=== PATIENT | male | born 1955 | race Caucasian/White ===

== ENCOUNTER 2023-01-06 05:37 | Inpatient (IN) | payer OTHER, BC ==
--- OUTSIDE RECORDS SUMMARY | 2023-01-06 05:41 | XMS REPORT | Continuity of Care Document ---
:1955 Author Organization [facility] t Address [address] [place] [address] Care Team Providers Name Role Phone Dimitri Boston MD Primary Care Physician Elisa Dorado Attending Clinician Unavailable PEGGY GUZMÁN Attending Clinician Unavailable Payers Payer Name Policy Type Policy Number Effective Date Expiration Date S tr Blue Cross Blue 6 [id number] 2019 [facility] Shield of [place] 00:00:00 [facility] MEDICARE MB [id number] [facility] Spirit NOVITAS [facility] Blue Cross Blue C1 [id number] [facility] Shield of [facility] Problems Condition Condition Condition Status Onset Resolution Last Treating Co mments Source Name Details Category Date Date Treatment Clinician Date [id number] Lactose Problem Commo n intoleranc Spirit e [facility] Hyperlipid Hyperlipid Problem C ommon emia emia Spirit [facility] Essential Essential Problem Com mon hypertensi hypertensi Sp thanh on on [facility] Seasonal Chronic Problem Common allergic seasonal [facility] rhinitis allergic - [facility] rhinitis [facility] Hiatal Hiatal Problem Common hernia hernia [facility] Gastro-eso Gastro-eso Problem C ommon phageal phageal Spirit reflux reflux - [facility] Hypothyroi Hypothyroi Problem C ommon dism dism [facility] [id number] Screening Problem Com mon for [facility] Allergies, Adverse Reactions, Alerts Allergy Allergy Status Severity Reaction(s) Onset Inactive Treating Comm ents Source Name Type Date Date Clinician Penicill Propensi Active Hives Method i in G ty to 11-09 st adverse 00:00: Hospita reaction 00 l s to drug penicill penicill Active hives Common in G in [facility] Family History Family Member Diagnosis Comments Start Date Stop Date Source Natural sister Diabetes [facility] Social History Social Habit Start Date Stop Date Quantity Comments Source Gender identity 2019-11-10 Identifies as male [facility] 09:53:09 gender (finding) Hospital Sexual orientation 2019-11-10 Heterosexual Meth odist 09:53:09 (finding) Hospital History of Tobacco Common [facility] - Use [facility] Sex Assigned At Common Sp thanh - [facility] Tobacco use and 2019-11-10 2019-11-10 Smokeless tobacco [facility] exposure 00:00:00 00:00:00 non-user Hospital Alcohol intake 2019-11-10 2019-11-10 Current drinker of [facility] 00:00:00 00:00:00 alcohol (finding) Hospita l History of Social 2019-11-10 2019-11-[address] function 00:00:00 00:00:[address] [facility] Tobacco Comment 2019-11-10 2019-11-10 smoked one cigar in [facility] 00:00:00 00:00:[address] [place] [address] Smoking Status Start Date Stop Date Source Never Smoker [facility] Medications Ordered Filled Start Stop Current Ordering Indication Dosage Frequency Signature Comments Components Source Medication Medication Date Date Medication? Clinician (SIG) Name Name losartan 2019- Yes [facility] (COZAAR) 25 7-21 st MG tablet 14:18: Hospita 04 l amLODIPine Yes 2.5mg QD Take 2.5 Me [facility] (NORVASC) 7-[address] 2.5 mg 00:00: mouth Hospita tablet 00 daily. l levothyroxi 2019-0 Yes 25ug QD Take 25 Met hodi ne 7-[address] (SYNTHROID) 00:00: mouth Hospi ta 25 mcg 00 daily. l tablet simvastatin 2020-0 Yes 20mg Take 20 mg [facility] (ZOCOR) 20 6-[address] mg tablet 00:00: Hospita 00 l hydroCHLORO 2020-0 Yes 12.5mg Q7D Take 12.5 [facility] thiazide 6-[address] (MICROZIDE) 00:00: mouth once Hospita 12.5 mg 00 a week. l capsule esomeprazol 2012-0 Yes Method i e magnesium 2-13 st 20 mg 00:00: Hospita tablet,ann marie 00 l yed release (DR/EC) Simvastatin Simvastatin No Simvastati 10 MG 10 MG n 10 MG Pantoprazol Pantoprazol No 1{table QD Pantoprazo e Sodium 40 e Sodium 40 t} le Sodium MG MG 40 MG Pearls IC - Pearls IC - No Pearls IC - Fluticasone Fluticasone No 2{spray QD Fluticason Propionate Propionate _in_eac e 50 MCG/ACT 50 MCG/ACT h_nostr Propionate il} 50 MCG/ACT One A Day One A Day No One A Day Mens Mens Mens Vita[facility]ves VitaCraves VitaCraves - - - Potassium Potassium No Potassium Chloride Chloride Chloride Jeannine ER 20 Jeannine ER 20 Jeannine ER 20 MEQ MEQ MEQ amLODIPine amLODIPine No amLODIPine Besylate Besylate Besylate 2.5 MG 2.5 MG 2.5 MG Levothyroxi Levothyroxi No QD Levothyrox ne Sodium ne Sodium ine Sodium 50 MCG 50 MCG 50 MCG hydroCHLORO hydroCHLORO No hydroCHLOR thiazide thiazide Othiazide 12.5 MG 12.5 MG 12.5 MG Losartan Losartan No 1{table QD Losartan Potassium Potassium t} Potassium 25 MG 25 MG 25 MG One A Day One A Day No One A Day Mens Mens Mens Vita[employer] VitaCraves VitaCraves - - - amLODIPine amLODIPine No amLODIPine Besylate Besylate Besylate 2.5 MG 2.5 MG 2.5 MG Losartan Losartan No 1{table QD Losartan Potassium Potassium t} Potassium 25 MG 25 MG 25 MG Potassium Potassium No Potassium Chloride Chloride Chloride Jeannine ER 20 Jeannine ER 20 Jeannine ER 20 MEQ MEQ MEQ hydroCHLORO hydroCHLORO No hydroCHLOR thiazide thiazide Othiazide 12.5 MG 12.5 MG 12.5 MG Fluticasone Fluticasone No 2{spray QD Fluticason Propionate Propionate _in_eac e 50 MCG/ACT 50 MCG/ACT h_nostr Propionate il} 50 MCG/ACT Levothyroxi Levothyroxi No QD Levothyrox ne Sodium ne Sodium ine Sodium 25 MCG 25 MCG 25 MCG Esomeprazol Esomeprazol No 1{capsu QD Esomeprazo e Magnesium e Magnesium le} le 20 MG 20 MG Magnesium 20 MG Simvastatin Simvastatin No Simvastati 10 MG 10 MG n 10 MG Losartan Losartan No 1{table QD Losartan Potassium Potassium t} Potassium 25 MG 25 MG 25 MG Pantoprazol Pantoprazol No 1{table QD Pantoprazo e Sodium 40 e Sodium 40 t} le Sodium MG MG 40 MG Esomeprazol Esomeprazol No 1{capsu QD Esomeprazo e Magnesium e Magnesium le} le 20 MG 20 MG Magnesium 20 MG Pearls IC - Pearls IC - No Pearls IC - hydroCHLORO hydroCHLORO No hydroCHLOR thiazide thiazide Othiazide 12.5 MG 12.5 MG 12.5 MG amLODIPine amLODIPine No amLODIPine Besylate Besylate Besylate 2.5 MG 2.5 MG 2.5 MG Simvastatin Simvastatin No Simvastati 10 MG 10 MG n 10 MG Levothyroxi Levothyroxi No QD Levothyrox ne Sodium ne Sodium ine Sodium 25 MCG 25 MCG 25 MCG Fluticasone Fluticasone No 2{spray QD Fluticason Propionate Propionate _in_eac e 50 MCG/ACT 50 MCG/ACT h_nostr Propionate il} 50 MCG/ACT One A Day One A Day No One A Day Mens Mens Mens VitaCraves VitaCraves VitaCraves - - - Potassium Potassium No Potassium Chloride Chloride Chloride Jeannine ER 20 Jeannine ER 20 Jeannine ER 20 MEQ MEQ MEQ Losartan Losartan No 1{table QD Losartan Potassium Potassium t} Potassium 25 MG 25 MG 25 MG Pantoprazol Pantoprazol No 1{table QD Pantoprazo e Sodium 40 e Sodium 40 t} le Sodium MG MG 40 MG Esomeprazol Esomeprazol No 1{capsu QD Esomeprazo e Magnesium e Magnesium le} le 20 MG 20 MG Magnesium 20 MG Pearls IC - Pearls IC - No Pearls IC - hydroCHLORO hydroCHLORO No hydroCHLOR thiazide thiazide Othiazide 12.5 MG 12.5 MG 12.5 MG amLODIPine amLODIPine No amLODIPine Besylate Besylate Besylate 2.5 MG 2.5 MG 2.5 MG Simvastatin Simvastatin No Simvastati 10 MG 10 MG n 10 MG Levothyroxi Levothyroxi No QD Levothyrox ne Sodium ne Sodium ine Sodium 25 MCG 25 MCG 25 MCG Fluticasone Fluticasone No 2{spray QD Fluticason Propionate Propionate _in_eac e 50 MCG/ACT 50 MCG/ACT h_nostr Propionate il} 50 MCG/ACT One A Day One A Day No One A Day Mens Mens Mens VitaCraves VitaCraves VitaCraves - - - Potassium Potassium No Potassium Chloride Chloride Chloride Jeannine ER 20 Jeannine ER 20 Jeannine ER 20 MEQ MEQ MEQ Simvastatin Simvastatin No Simvastati 10 MG 10 MG n 10 MG Pantoprazol Pantoprazol No 1{table QD Pantoprazo e Sodium 40 e Sodium 40 t} le Sodium MG MG 40 MG Pearls IC - Pearls IC - No Pearls IC - Fluticasone Fluticasone No 2{spray QD Fluticason Propionate Propionate _in_eac e 50 MCG/ACT 50 MCG/ACT h_nostr Propionate il} 50 MCG/ACT One A Day One A Day No One A Day Mens Mens Mens VitaCraves VitaCraves VitaCraves - - - Potassium Potassium No Potassium Chloride Chloride Chloride Jeannine ER 20 Jeannine ER 20 Jeannine ER 20 MEQ MEQ MEQ amLODIPine amLODIPine No amLODIPine Besylate Besylate Besylate 2.5 MG 2.5 MG 2.5 MG Levothyroxi Levothyroxi No QD Levothyrox ne Sodium ne Sodium ine Sodium 50 MCG 50 MCG 50 MCG hydroCHLORO hydroCHLORO No hydroCHLOR thiazide thiazide Othiazide 12.5 MG 12.5 MG 12.5 MG Losartan Losartan No 1{table QD Losartan Potassium Potassium t} Potassium 25 MG 25 MG 25 MG Immunizations Ordered Immunization Filled Immunization Date Status Commen ts Source Name Name Pfizer COVID-19 Pfizer COVID-19 2020-06-17 Completed [facility] Vaccine Vaccine 13:55:00 - [facility] Pfizer COVID-19 Pfizer COVID-19 2020-06-17 Completed [facility] Vaccine Vaccine 13:55:00 - [facility] Pfizer COVID-19 Pfizer COVID-19 2020-06-17 Completed [facility] Vaccine Vaccine 13:55:00 - [facility] Pfizer COVID-19 Pfizer COVID-19 2020-06-17 Completed [facility] Vaccine Vaccine 13:55:00 - [facility] Pfizer COVID-19 Pfizer COVID-19 2020-06-17 Completed [facility] Vaccine Vaccine 13:55:00 - [facility] Pfizer COVID-19 Pfizer COVID-19 2020-05-21 Completed [facility] Vaccine Vaccine 13:55:00 [facility] Pfizer COVID-19 Pfizer COVID-19 2020-05-21 Completed [facility] Vaccine Vaccine 13:55:00 - [facility] Pfizer COVID-19 Pfizer COVID-19 2020-05-21 Completed [facility] Vaccine Vaccine 13:55:00 - [facility] Pfizer COVID-19 Pfizer COVID-19 2020-05-21 Completed [facility] Vaccine Vaccine 13:55:00 - [facility] Pfizer COVID-19 Pfizer COVID-19 2020-05-21 Completed [facility] Vaccine Vaccine 13:55:00 [facility] Vital Signs Vital Name Observation Time Observation Value Comments Source blood pressure 2021-11-23 13:20:00 139 mm[Hg] Common [facility] - systolic [facility] blood pressure 2021-11-23 13:20:00 75 mm[Hg] Common [facility] - diastolic [facility] height 2021-11-23 13:20:00 68.5 [in_i] [facility] weight 2021-11-23 13:20:00 211.6 [lb_av] Common [facility] temperature 2021-11-23 13:20:00 97.0 [degF] [facility] bmi 2021-11-23 13:20:00 31.7 kg/m2 [facility] oximetry 2021-11-23 13:20:00 98 % [facility] respiratory rate 2021-11-23 13:20:00 16 /min Comm on [facility] height 2021-10-27 13:00:00 68.5 [in_i] [facility] weight 2021-10-27 13:00:00 201.0 [lb_av] Common [facility] temperature 2021-10-27 13:00:00 98.6 [degF] [facility] bmi 2021-10-27 13:00:00 30.11 kg/m2 [facility] Procedures This patient has no known procedures. Plan of Care Planned Activity Planned Date Details Comments Source Future Scheduled 2023-01-06 Screening for [facility] Test 05:40:37 malignant neoplasm of colon (procedure) [code = 384678896] Future Scheduled 2023-01-06 Screening for [facility] Test 05:40:37 malignant neoplasm of colon (procedure) [code = 632962103] Future Scheduled 2023-01-06 Screening for [facility] Test 05:40:37 malignant neoplasm of colon (procedure) [code = 637091050] Future Scheduled 2023-01-06 COVID-19 VACCINE (#1) [facility] Test 05:40:37 [code = COVID-19 VACCINE (#1)] Future Scheduled 2023-01-06 Screening for [facility] Test 05:40:37 malignant neoplasm of colon (procedure) [code = 196733877] Future Scheduled 2023-01-06 Screening for [facility] Test 05:40:37 malignant neoplasm of colon (procedure) [code = 372817026] Future Scheduled 2023-01-06 SHINGLES VACCINES (1 [facility] Test 05:40:37 of 2) [code = SHINGLES VACCINES (1 of 2)] Future Scheduled 2023-01-06 65+ [facility]OCOCCAL [facility] Test 05:40:37 VACCINE (1 - PCV) [code = 65+ PNEUMOCOCCAL VACCINE (1 - PCV)] Future Scheduled 2023-01-06 INFLUENZA VACCINE (#1) [facility] Test 05:40:37 [code = INFLUENZA VACCINE (#1)] Encounters Start End Encounter Admission Attending Care Care Encounter Source Date/Time Date/Time Type Type Clinicians Facility Department ID 2022-06-04 Outpatient [place], [facility] [id number] Common 13:26:01 Elisa [id number] [facility] 2021-11-21 Outpatient [place], STLMLC STLMLC [id number] Common 11:21:00 Elisa [id number] [facility] 2021-05-[address], STLMLC STLMLC [id number] Common 13:47:36 Elisa [id number] [facility] 2021-05-[address], STLMLC STLMLC [id number] Common 13:10:31 Elisa [id number] [facility] 2022-02-22 2022-02-22 (TEL) STLMLC STLMLC [id number] Co mmon 00:00:00 00:00:00 [facility] 2021-11-23 2021-11-23 OFFICE STLMLC STLMLC [id number] Co mmon 00:00:00 00:00:00 VISIT [facility] PT - CHI LEVEL 4 [facility] 2021-10-27 2021-10-27 (TEL) STLMLC STLMLC [id number] Co mmon 00:00:00 00:00:00 [facility] 2021-10-27 2021-10-27 SUB ANNUAL STLMLC STLMLC [id number] Common 00:00:00 00:00:00 MCR [facility] VISIT [facility] 2020-11-23 2020-11-23 OFFICE STLMLC STLMLC [id number] Co mmon 00:00:00 00:00:00 VISIT [facility] PT - CHI LEVEL 1 [facility] 2020-10-19 2020-10-19 Outpatient STLMLC STLMLC [id number] Common 00:00:00 00:00:00 [facility] 2020-10-19 2020-10-19 Outpatient STLMLC STLMLC [id number] Common 00:00:00 00:00:00 [facility] 2020-10-14 2020-10-14 Outpatient STLMLC STLMLC [id number] Common 00:00:00 00:00:00 [facility] 2020-09-22 2020-09-22 Outpatient STLMLC STLMLC [id number] Common 00:00:00 00:00:00 [facility] 2019-11-10 2019-11-10 Outpatient ARIELLE [facility] [id number] [address] [place] 00:00:00 00:00:00 PEGGY [address] 2019-11-10 2019-11-10 [facility] [id number] [address] [place] 00:00:00 00:00:00 PEGGY [address] Results Test Description Test Time Test Comments Results Result Comments Source HEMOGLOBIN A1C 2020-11-23 00:00:00 Test Item Value Reference Range Interpretation Comme nts A1C (test code = 4548-4) 5.6%
[2023-01-06 06:12] LABS: Absolute Lymphocytes (CBC) 1.3 K/uL (0.7-4.9); Hematocrit 45.2 % (39.6-49.0); Lymphocytes % 9.2 % (15.3-44.8); MCV 93.2 fL (80-100); MPV 7.1 fL (7.6-11.3); Platelets 263 thou/uL (152-406); RBC Red Blood Cell Count 4.85 M/uL (4.33-5.43)
[2023-01-06] MEDS ORDERED: MORPHINE 4 MG/ML SYR ONE (06:18)
[2023-01-06] MEDS ORDERED: ONDANSETRON 4 MG/2 ML VIAL ONE (06:18)
[2023-01-06] MEDS ORDERED: KETOROLAC 30 MG/ML INJ ONE (06:18)
[2023-01-06] MEDS ORDERED: NA CHLORIDE 0.9% 1,000 ML ONE (06:18)
[2023-01-06 06:23] LABS: Specific Gravity 1.026 (1.005-1.030); Urine Bacteria None Seen /HPF (<20); Urine Bilirubin NEGATIVE (Negative); Urine Blood Negative (Negative); Urine Clarity Clear (Clear); Urine Color Yellow (Yellow); Urine Glucose NEGATIVE (Negative); Urine Mucus 1+ /HPF (None Seen); Urine Protein TRACE (Negative); Urine RBC <5 /HPF (None Seen); Urine Urobilinogen Normal (Normal)
[2023-01-06 06:31] LABS: Bilirubin Total 1.2 mg/dL (0.2-1.0); Protein, Total 7.7 g/dL (6.4-8.2)
[2023-01-06] MEDS ORDERED: METRONIDAZOLE 500mg IVPB 500 MG/100 ML BAG IV ONE (07:29)
[2023-01-06] MEDS ORDERED: CEFTRIAXONE 1000 MG/VIAL ONE (07:29)
--- NOTE | 2023-01-06 07:51 | RAD REPORT ---
EXAM DESCRIPTION: CT - Head Brain Wo Cont - 01/06/2023 6:59 am CLINICAL HISTORY: acute syncope COMPARISON: Iac W And Wo Cont dated 12/20/2021 TECHNIQUE: Noncontrast head CT images were obtained without IV contrast. Multiplanar reformats were generated and reviewed. All CT scans are performed using dose optimization technique as appropriate and may include automated exposure control or mA/KV adjustment according to patient size. FINDINGS: No intracranial hemorrhage, mass, or edema. Midline structures are unremarkable. Normal ventricular caliber for age. Mera-white matter differentiation is preserved, without evidence of acute infarct. No abnormal extra- axial fluid collections. Mild periventricular deep white matter hypodensities, nonspecific, may suggest sequelae of chronic sm all vessel ischemic changes. Mastoid air cells on the left show confluent sclerosis, could relate to sequelae of prior infection. Visualized portions of the paranasal sinuses are clear. No acute bony findings. IMPRESSION: No evidence of an acute intracranial process. Mild nonspecific deep white matter hypoden sities, may suggest chronic small vessel ischemic changes.
--- NOTE | 2023-01-06 08:06 | RAD REPORT ---
EXAM DESCRIPTION: CT - Chest Abdomen Pelvis W Cont - 01/06/2023 6:59 am CLINICAL HISTORY: ABDOMINAL DISTENTION COMPARISON: No comparisons TECHNIQUE: Thin axial CT images of the chest, abdomen, and pelvis, obtained following intravenous ad ministration of 95 mL Isovue-300. Multiplanar reformats were generated and reviewed. All CT scans are performed using dose optimization technique as appropriate and may include automated exposure control or mA/KV adjustment according to patient size. FINDINGS: The lungs are clear.No pleural or pericardial effusion.No intrathoracic adenopathy. The liver, spleen, pancreas, adrenal glands and kidneys are within normal limits. Focal wall thickening along the mid sigmoid colon. Wall thickening is more pronounced along the infer ior wall of the colon, as best appreciated on image 53 series 303, without hypodense component, findi ng may relate to a developing intramural phlegmon. Fat stranding extends caudally into the pericystic space. No suspicious fluid collections elsewhere. There is thickening of the wall in the dome of the bladder. No bowel obstruction, free air, free fluid or abscess. Status post appendicectomy. No path ologic lymphadenopathy in the abdomen or pelvis. No worrisome osseous finding. IMPRESSION: Acute sigmoid diverticulitis. Possible developing inferior wall intramural phlegmon. Sympathetic inflammatory wall thickening along the dome of the bladder. The findings were communicated to Dr. Martinez on 01/06/2023 at 07:59 hours.
--- NOTE | 2023-01-06 08:08 | ER ---
Nurse's Notes [facility] Name: Todd Kim Age: 67 yrs Sex: Male : 1955 Arrival Date: 01/06/2023 Time: 05:37 Bed 5 Private MD: Diagnosis: Diverticulitis of large intestine without perforation or abscess without bleeding;Sigmoid colon diverticulitis with developing phlegmon intramural location of sigmoid colon Presentation: 01/06 05:45 Chief complaint: Patient states: LLQ cramping pain of 8,onset Saturday with syncopal pf1 episode, left pelvic pain upon urination with nausea,onset Saturday and SOB this AM. Patient stated when having the syncopal episode yesterday was while sitting at the kitchen table, then found himself later on the kitchen floor when he woke up. 05:45 Coronavirus screen: Vaccine status: Patient reports receiving the 2nd dose of the covid pf1 vaccine. 3 doses of pfizer Client denies travel out of the [place] in the last 14 days. At this time, the client does not indicate any symptoms associated with coronavirus-19. Ebola Screen: Patient negative for fever greater than or equal to 101.5 degrees Fahrenheit, and additional compatible Ebola Virus Disease symptoms. Initial Sepsis Screen: Does the patient meet any 2 criteria? HR > 90 bpm. No. Patient's initial sepsis screen is negative. Does the patient have a suspected source of infection? No. Patient's initial sepsis screen is negative. Risk Assessment: Do you want to hurt yourself or someone else? Patient reports no desire to harm self or others. 05:45 Method Of Arrival: Ambulatory pf1 05:45 Acuity: JOE 3 pf1 06:23 Onset of symptoms was January 05, 2023. jw7 Triage Assessment: 06:21 General: Appears in no apparent distress. uncomfortable, Behavior is calm, cooperative. jw7 Pain: Complains of pain in left femoral area Pain does not radiate. Pain currently is 8 out of 10 on a pain scale. Quality of pain is described as pressure, Pain began 1 day ago. Is intermittent. EENT: No deficits noted. No signs and/or symptoms were reported regarding the EENT system. Neuro: No deficits noted. [place] Agitation-Sedation Scale (RASS): 0 - Alert and Calm. Cardiovascular: Reports nausea, shortness of breath, syncope, Capillary refill < 3 seconds Clubbing of nail beds is absent JVD is absent Patient's skin is warm and dry. Respiratory: Reports shortness of breath on exertion Airway is patent Trachea midline Respiratory effort is even, unlabored, Respiratory pattern is regular, symmetrical. GI: No deficits noted. No signs and/or symptoms were reported involving the gastrointestinal system. : No deficits noted. No signs and/or symptoms were reported regarding the genitourinary system. Derm: No deficits noted. No signs and/or symptoms reported regarding the dermatologic system. Musculoskeletal: No deficits noted. No signs and/or symptoms reported regarding the musculoskeletal system. Circulation, motion, and sensation intact. Range of motion: intact in all extremities. Historical: - Allergies: 06:13 PENICILLINS; pf1 - PMHx: 06:13 Hypertensive disorder; Diverticulitis; Hypothyroidism; hiatal hernia; pf1 - PSHx: 06:13 Appendectomy; pf1 - Immunization history:: Adult Immunizations up to date, Last tetanus immunization: < 10 years ago Flu vaccine is up to date. - Social history:: Smoking status: Patient denies any tobacco usage or history of. Patient uses alcohol, on a daily basis. Patient/guardian denies using street drugs. - Family history:: not pertinent. Screenin:19 [facility] ED Fall Risk Assessment (Adult) History of falling in the last 3 months, jw7 including since admission Yes- physiologic fall (2 pts) Confusion or Disorientation No (0 pts) Intoxicated or Sedated No (0 pts) Impaired Gait No (0 pts) Mobility Assist Device Used No (0 pt) Altered Elimination No (0 pt) Score/Fall Risk Level 0 - 2 = Low Risk Oriented to surroundings, Maintained a safe environment. Abuse screen: Denies threats or abuse. Denies injuries from another. Nutritional screening: No deficits noted. Tuberculosis screening: No symptoms or risk factors identified. Assessment: 07:56 General: Appears in no apparent distress. comfortable, Behavior is calm, cooperative, ko1 appropriate for age. Pain: Complains of pain in left femoral area and pelvis. Neuro: No deficits noted. Cardiovascular: No deficits noted. Respiratory: No deficits noted. GI: Reports lower abdominal pain, nausea. : No deficits noted. EENT: No deficits noted. Derm: No deficits noted. Musculoskeletal: No deficits noted. Vital Signs: 05:45 BP 159 / 98; Pulse 98; Resp 18; Temp 98.6; Pulse Ox 99% ; Weight 95.25 kg; Height 5 ft. pf1 9 in. ; Pain 8/10; 06:15 BP 128 / 75 LA Sitting (auto/reg); Pulse 84 MON; Resp 17 S; Pulse Ox 99% on R/A; jw7 07:25 BP 136 / 82; Pulse 78; Resp 16; Pulse Ox 100% ; ko1 07:59 BP 126 / 79; Pulse 80; Resp 16; Pulse Ox 99% ; ko1 05:45 Body Mass Index 31.01 (95.25 kg, 175.26 cm) pf1 05:45 Pain Scale: Adult pf1 [place] Coma Score: 06:52 Eye Response: spontaneous(4). Motor Response: obeys commands(6). Verbal Response: sp4 oriented(5). Total: 15. NIH Stroke Scale Scores: 06:52 NIHSS Score: 0 sp4 ED Course: 05:42 Patient arrived in ED. kj1 05:58 Kyle Martinez MD is Attending Physician. sp4 06:01 Raven Campos, RN is Primary Nurse. jw7 06:01 Inserted saline lock: 20 gauge in right antecubital area, using aseptic technique. jw7 Blood collected. 06:13 Triage completed. pf1 06:19 CBC with Diff Sent. jw7 06:19 CMP Sent. jw7 06:19 Lipase Sent. jw7 06:19 Urinalysis w/ reflexes Sent. jw7 06:19 Patient has correct armband on for positive identification. Bed in low position. Call jw7 light in reach. 06:23 Arm band placed on. jw7 06:41 EKG done, by ED staff, reviewed by Kyle Martinez MD. jw7 07:01 CT Chest, Abdomen, Pelvis - W/Contrast In Process Unspecified. EDMS 07:01 CT Head Brain wo Cont In Process Unspecified. EDMS 07:56 No provider procedures requiring assistance completed. ko1 07:56 Provided Education on: na. ko1 08:07 Lucio Strong MD is Hospitalizing Provider. sp4 11:17 Patient admitted, IV remains in place. ko1 Administered Medications: 06:19 Drug: NS 0.9% IV 1000 ml Route: IV; Rate: 1 bolus; Site: right antecubital; jw7 06:19 Drug: TORadol - Ketorolac IVP 15 mg Route: IVP; Site: right antecubital; jw7 06:19 Drug: Ondansetron IVP 4 mg Route: IVP; Site: right antecubital; jw7 06:19 Drug: morphine IVP or IV 4 mg Route: IVP; Infused Over: 4 mins; Site: right antecubital;jw7 07:22 Drug: Rocephin - Rocephin (cefTRIAXone) IVPB 1 grams Route: IVPB; Infused Over: 30 ko1 mins; Site: right antecubital; 07:25 Drug: metroNIDAZOLE IVPB 500 mg Volume: 100 ml; Route: IVPB; Rate: 200 ml/hr; Infused ko1 Over: 30 mins; Site: right antecubital; 08:10 Drug: D5-1/2 NS IV 1000 ml Route: IV; Rate: 125 ml/hr; Site: right antecubital; ko1 Medication: 07:56 VIS not applicable for this client. ko1 Outcome: 08:07 Decision to Hospitalize by Provider. sp4 11:17 Admitted to Tele via wheelchair, room 219, with chart, Report called to MICHELINE Washburn ko1 11:17 Condition: stable 11:17 Instructed on the need for admit. 11:40 Patient left the ED. ko1 NIH Stroke Scale - NIH Stroke Score Date: 01/06/2023 Time: 06:52 Total Score = 0 10. Dysarthria (speech clarity - read or repeat words) - 0(Normal) 11. Extinction and Inattention (visual/tactile/auditory/spatial/personal) - 0(No abnormality) 1a. Level of Consciousness (LOC) - 0(Alert) 1b. Level of Consciousness (LOC) (Month \T\ Age) - 0(Both) 1c. LOC Commands (Open \T\ Closes Eyes/Funeral Limousine Driver) - 0(Both) 2. Best Gaze (Lateral Gaze Paresis) - 0(Normal) 3. Visual Field Loss - 0(No visual loss) 4. Facial Palsy - 0(Normal) 5a. Left Arm: Motor (10-second hold) - 0(No drift) 5b. Right Arm: Motor (10-second hold) - 0(No drift) 6a. Left Leg: Motor (5-second hold - always test supine) - 0(No drift) 6b. Right Leg: Motor (5-second hold - always test supine) - 0(No drift) 7. Limb Ataxia (finger/nose \T\ heel/howard - test with eyes open) - 0(Absent) 8. Sensory Loss (pinprick arms/legs/face) - 0(Normal) 9. Best Language: Aphasia (description/naming/reading) - 0(No aphasia) Initials: sp4 Signatures: Dispatcher [employer] EDMS Andreia Virk kj1 Raven Campos RN RN jw7 Joselyn Burgess, MICHELINE RN ko1 Meera Rivers RN RN pf1 Kyle Martinez MD MD sp4 Corrections: (The following items were deleted from the chart) 06:02 06:01 Inserted saline lock: 20 gauge in left antecubital area, using aseptic jw7 technique. Blood collected. jw7 06:13 05:55 Chief complaint: Patient states: LLQ cramping pain of 8,onset Saturday with pf1 syncopal episode, left pelvic pain upon urination with nausea,onset Saturday and SOB this AM. Patient stated when having the syncopal episode yesterday was while sitting at the kitchen table, then found himself later on the kitchen floor when he woke up. pf1 06:24 06:23 BP 128 / 75 Sitting Auto L Arm Regular; Pulse 84bpm; MonitorResp 17bpm; jw7 Spontaneous; Pulse Ox 99% RA; jw7
--- NOTE | 2023-01-06 08:08 | EDPHYS ---
Physician Documentation [facility] Name: Todd Kim Age: 67 yrs Sex: Male : 1955 Arrival Date: 01/06/2023 Time: 05:37 Bed 5 Private MD: ED Physician Kyle Martinez HPI: 01/06 06:00 This 67 yrs old Male presents to ER via Unassigned with complaints of sp4 Abdominal Pain. 06:52 59-year-old male with history of hypertension, diverticulitis, hypothyroidism, hiatal sp4 hernia presents with left groin pain starting on Saturday 2 days ago. The pain described as episodic and at one time patient developed severe enough pain where he actually passed out and fell to the floor yesterday on Saturday patient denied vomiting, denied bloody stools, denied testicular pain, denied urinary symptoms. Historical: - Allergies: 06:13 PENICILLINS; pf1 - PMHx: 06:13 Hypertensive disorder; Diverticulitis; Hypothyroidism; hiatal hernia; pf1 - PSHx: 06:13 Appendectomy; pf1 - Immunization history:: Adult Immunizations up to date, Last tetanus immunization: < 10 years ago Flu vaccine is up to date. - Social history:: Smoking status: Patient denies any tobacco usage or history of. Patient uses alcohol, on a daily basis. Patient/guardian denies using street drugs. - Family history:: not pertinent. ROS: 06:52 Constitutional: Negative for fever, chills, and weight loss, Abdomen/GI: Negative for sp4 nausea, vomiting, diarrhea, and constipation, positive for left groin pain and left groin bulge 06:52 All other systems are negative. Exam: 06:52 Constitutional: This is a well developed, well nourished patient who is awake, alert, sp4 and in no acute distress. Head/Face: Normocephalic, atraumatic. Eyes: Pupils equal round and reactive to light, extra-ocular motions intact. Lids and lashes normal. Conjunctiva and sclera are not injected. Cornea within normal limits. Periorbital areas with no swelling, redness, or edema. ENT: Nares patent. No nasal discharge, no septal abnormalities noted. Tympanic membranes are normal and external auditory canals are clear. Oropharynx with no redness, swelling, or masses, exudates, or evidence of obstruction, uvula midline. Mucous membranes moist. Neck: Trachea midline, no thyromegaly or masses palpated, and no cervical lymphadenopathy. Supple, full range of motion without nuchal rigidity, or vertebral point tenderness. Chest/axilla: Normal chest wall appearance and motion. Nontender with no deformity. No lesions are appreciated. Cardiovascular: Regular rate and rhythm with a normal S1 and S2. No gallops, murmurs, or rubs. Normal PMI, no JVD. No pulse deficits. Respiratory: Lungs have equal breath sounds bilaterally, clear to auscultation and percussion. No rales, rhonchi or wheezes noted. No increased work of breathing, no retractions or nasal flaring. Abdomen/GI: Soft, with normal bowel sounds. No distension or tympany. No guarding or rebound. Positive left groin tenderness, positive left inguinal hernia that is reducible and he is currently in the left inguinal canal. Back: No spinal tenderness. No costovertebral tenderness. Male : Normal genitalia with no discharge or lesions. Positive left inguinal hernia without signs of incarceration. Negative testicular masses. Uncircumcised male Skin: Warm, dry with normal turgor. Normal color with no rashes, no lesions, and no evidence of cellulitis. MS/ Extremity: Pulses equal, no cyanosis. Neurovascular intact. Full, normal range of motion. Neuro: Awake and alert, GCS 15, oriented to person, place, time, and situation. Cranial nerves II-XII grossly intact. Motor strength 5/5 in all extremities. Sensory grossly intact. Psych: Awake, alert, with orientation to person, place and time. Behavior, mood, and affect are within normal limits 06:52 ECG was reviewed by the Attending Physician. EKG time 0 634, normal sinus rhythm, no ST sp4 elevation or depression, no ectopy Vital Signs: 05:45 BP 159 / 98; Pulse 98; Resp 18; Temp 98.6; Pulse Ox 99% ; Weight 95.25 kg; Height 5 ft. pf1 9 in. ; Pain 8/10; 06:15 BP 128 / 75 LA Sitting (auto/reg); Pulse 84 MON; Resp 17 S; Pulse Ox 99% on R/A; jw7 07:25 BP 136 / 82; Pulse 78; Resp 16; Pulse Ox 100% ; ko1 07:59 BP 126 / 79; Pulse 80; Resp 16; Pulse Ox 99% ; ko1 05:45 Body Mass Index 31.01 (95.25 kg, 175.26 cm) pf1 05:45 Pain Scale: Adult pf1 NIH Stroke Scale Scores: 06:52 NIHSS Score: 0 sp4 [place] Coma Score: 06:52 Eye Response: spontaneous(4). Motor Response: obeys commands(6). Verbal Response: sp4 oriented(5). Total: 15. MDM: 06:26 Patient medically screened. sp4 07:54 ED course: CT head is unremarkable . sp4 08:06 Differential Diagnosis altered mental status, sepsis, flu. Data reviewed: vital signs, sp4 nurses notes, old medical records, lab test result(s), EKG, radiologic studies, CT scan. Consideration of Admission/Observation Patient was admitted/placed on observation. Escalation of care including admission/observation considered. Management of patient was discussed with the following: Hospitalist: Discussed with Dr. Strong. Oil Exploration Engineer: Discussed with Dr. Minor with general surgery. ED course: Patient's CT abdomen pelvis reveals significant diverticulitis of the sigmoid colon also possible developing phlegmon intramural location of sigmoid colon. At this time patient warrants admission with general surgery consult. Patient was given IV Rocephin and Flagyl. 01/06 05:59 Order name: CBC with Diff; Complete Time: 06:26 sp4 01/06 05:59 Order name: CMP; Complete Time: 06:57 sp4 01/06 05:59 Order name: Lipase; Complete Time: 06:57 sp4 01/06 05:59 Order name: Urinalysis w/ reflexes; Complete Time: 06:26 sp4 01/06 06:27 Order name: Troponin High Sensitivity; Complete Time: 06:57 sp4 01/06 09:07 Order name: Thyroid Stimulating Hormone EDSD 01/06 11:19 Order name: Lactate w/ 2H reflex if indic. EDSD 01/06 11:26 Order name: Phosphorus EDSD 01/06 11:26 Order name: Magnesium EDSD 01/06 11:26 Order name: Thyroid Stimulating Hormone EDSD 01/06 06:28 Order name: CT Chest, Abdomen, Pelvis - W/Contrast; Complete Time: 08:07 sp4 01/06 06:28 Order name: CT Head Brain wo Cont; Complete Time: 07:54 sp4 01/06 06:27 Order name: EKG; Complete Time: 06:28 sp4 01/06 09:07 Order name: CONS Physician Consult EDMS 01/06 05:59 Order name: IV Saline Lock; Complete Time: 06:02 sp4 01/06 05:59 Order name: Labs collected and sent; Complete Time: 06:02 sp4 01/06 06:27 Order name: EKG - Nurse/Tech; Complete Time: 06:41 sp4 01/06 07:59 Order name: NPO; Complete Time: 08:09 sp4 EC:52 Rate is 81 beats/min. Rhythm is regular, Normal Sinus Rhythm. QRS [place] is Normal. NM sp4 interval is normal. QRS interval is normal. QT interval is normal. No Q waves. T waves are Normal. No ST changes noted. Clinical impression: Normal ECG. Interpreted by me. Reviewed by me. Administered Medications: 06:19 Drug: NS 0.9% IV 1000 ml Route: IV; Rate: 1 bolus; Site: right antecubital; jw7 06:19 Drug: TORadol - Ketorolac IVP 15 mg Route: IVP; Site: right antecubital; jw7 06:19 Drug: Ondansetron IVP 4 mg Route: IVP; Site: right antecubital; jw7 06:19 Drug: morphine IVP or IV 4 mg Route: IVP; Infused Over: 4 mins; Site: right antecubital;jw7 07:22 Drug: Rocephin - Rocephin (cefTRIAXone) IVPB 1 grams Route: IVPB; Infused Over: 30 ko1 mins; Site: right antecubital; 07:25 Drug: metroNIDAZOLE IVPB 500 mg Volume: 100 ml; Route: IVPB; Rate: 200 ml/hr; Infused ko1 Over: 30 mins; Site: right antecubital; 08:10 Drug: D5-1/2 NS IV 1000 ml Route: IV; Rate: 125 ml/hr; Site: right antecubital; ko1 Disposition Summary: 01/06/23 08:07 Hospitalization Ordered Hospitalization Status: Inpatient Admission sp4 Provider: Lucio Strong Location: Telemetry/[facility] (Inpatient) sp4 Condition: Stable sp4 Problem: new sp4 Symptoms: are unchanged sp4 Bed/Room Type: Standard sp4 Room Assignment: 219(01/06/23 10:39) talisha Diagnosis - Diverticulitis of large intestine without perforation or abscess without bleeding sp4 - Sigmoid colon diverticulitis with developing phlegmon intramural location of sp4 sigmoid colon Discharge Instructions: - Discharge Summary Sheet sp4 - Diverticulitis, [id number] sp4 Forms: - Medication Reconciliation Form sp4 - SBAR form sp4 - Leadership Thank You Letter sp4 Prescriptions: - Cephalexin 500 mg Oral Capsule - take 1 capsule by ORAL route every 6 hours for 10 days; 40 capsule; Refills: 0, sp4 Product Selection Permitted - Flagyl 500 mg Oral Tablet - take 1 tablet by ORAL route every 8 hours for 10 days; 30 tablet; Refills: 0, sp4 Product Selection Permitted NIH Stroke Scale - NIH Stroke Score Date: 01/06/2023 Time: 06:52 Total Score = 0 10. Dysarthria (speech clarity - read or repeat words) - 0(Normal) 11. Extinction and Inattention (visual/tactile/auditory/spatial/personal) - 0(No abnormality) 1a. Level of Consciousness (LOC) - 0(Alert) 1b. Level of Consciousness (LOC) (Month \T\ Age) - 0(Both) 1c. LOC Commands (Open \T\ Closes Eyes/Almond Roaster) - 0(Both) 2. Best Gaze (Lateral Gaze Paresis) - 0(Normal) 3. Visual Field Loss - 0(No visual loss) 4. Facial Palsy - 0(Normal) 5a. Left Arm: Motor (10-second hold) - 0(No drift) 5b. Right Arm: Motor (10-second hold) - 0(No drift) 6a. Left Leg: Motor (5-second hold - always test supine) - 0(No drift) 6b. Right Leg: Motor (5-second hold - always test supine) - 0(No drift) 7. Limb Ataxia (finger/nose \T\ heel/howard - test with eyes open) - 0(Absent) 8. Sensory Loss (pinprick arms/legs/face) - 0(Normal) 9. Best Language: Aphasia (description/naming/reading) - 0(No aphasia) Initials: sp4 Signatures: Dispatcher [employer] Vivek Hylton RN RN tao1 Raven Campos RN RN jw7 Joselyn Burgess, RN RN ko1 Meera Rivers RN RN pf1 Kyle Martinez MD MD sp4 Corrections: (The following items were deleted from the chart) 06:34 06:00 Abdomen Pelvis W [id number].[id number] ordered. EDMS EDMS 10:39 08:07 sp4 talisha
[2023-01-06] MEDS ORDERED: D5 0.45 NS 1,000 ML IV ONE (08:23)
--- NOTE | 2023-01-06 08:57 | P.HP ---
Patient History Date of Service: 01/06/23 Reason for admission: Abdominal pain History of Present Illness: This patient is a 67-year-old male with past medical history of hypertension, hyperlipidemia, hypothyroidism, diverticulitis, and hiatal hernia. Patient presents to ER with intense abdominal pain that started on Saturday evening consistent with sharp pain turned into cramping radiating across the lower abdominal region. Pain has become substantially worse yesterday morning at 5 AM which involved intense nausea, clamminess, and a syncopal episode. Patient reports having similar episodes of less severity that only would last 1 day. They have been occurring more frequently in the past several months. 2 to 3 weeks ago was the last event at which time relief took several days. Symptoms that brought the patient to the ER today is abdominal pain with cramping, pain while peeing, shortness of breath all day, clamminess with palpitation and lightheadedness resulting in a syncopal episode. While in the ED BP 159 / 98; Pulse 98; Resp 18; Temp 98.6; Pulse Ox 99% ; Pain 8/10. CT head negative, CT abdomen pelvis showing acute sigmoid diverticulitis, possible developing inferior wall intramural phlegmon, sympathetic inflammatory wall thickening at the dome of the bladder. EKG shows normal sinus rhythm with QT 356. WBC 14.1, Sodium 137, potassium 4.0, mag and Phos are pending, lipase 27, lactate pending. Upon examination patient is calm, on room air sating 99, blood pressure 131/78 with heart rate 80. Abdominal tenderness LLQ greater then RLQ. Patient sees Dr. العلي for the hiatal hernia. Patient will be admitted for further treatment of acute diverticulitis. Allergies Penicillins Allergy (Unverified 05/08/14 10:20) Unknown Review of Systems General: Sweats Eyes: Unremarkable ENT: Unremarkable Respiratory: SOB with Excertion Cardiovascular: Light Headedness Gastrointestinal: Nausea, Distention, Other (hiatal hernia) Genitourinary: Unremarkable Musculoskeletal: Unremarkable Integumentary: Unremarkable Neurological: Other (syncopal episode) Physical Examination - Studies Laboratory Data (last 24 hrs) 01/06/23 01/06/23 06:03 06:03 WBC 14.10 H Hgb 16.4 Hct 45.2 Plt Count 263 Sodium 137 Potassium 4.0 BUN 19 H Creatinine 1.04 Glucose 129 H Total Bilirubin 1.2 H AST 12 L ALT 28 Alkaline Phosphatase 80 Lipase 27 Assessment and Plan - Plan Assessment and Plan Acute sigmoid diverticulitis Leukocytosis -WBC 14.1 - GI consulted (Dr Yeager) - NPO - IVFs- D5NS - Flagyl and rocephin given in ED -flagyl and ciprofloxacin -zofran - Control pain -IS, ambulate -lactic pending -blood culutres -replace electrolytes PRN - Telemetry -Will need colonoscopy upon discharge for cancer screening h/o HTN -labetolol IV PRN while NPO -restart home medications when appropriate -monitor BP h/o hypothyroidism -synthroid IV h/o hiatal hernia and GERD -patient sees Dr Yeagert regularly -protonix IV DVT ppx lovenox Full code LOS >2days NPO Discharge Plan: Home Plan to discharge in: Greater than 2 days - Advance Directives Does patient have a Living Will: No Does patient have a Durable POA for Healthcare: No Time Spent Managing Pts Care (In Minutes): 55
[2023-01-06] MEDS ORDERED: ONDANSETRON 4 MG/2 ML VIAL IV PRN (09:12)
[2023-01-06] MEDS ORDERED: MORPHINE 2 MG/ML SYR IV PRN (09:38)
[2023-01-06] MEDS ORDERED: SODIUM CHLORIDE 0.9% 10ML INJ IV PRN (09:50)
[2023-01-06] MEDS ORDERED: D5 0.9 NS 1,000 ML IV SCH (10:00)
[2023-01-06] MEDS: CIPROFLOXACIN 400mg IV 400 MG/200 ML BAG IV SCH ×2 (10:00→20:37)
[2023-01-06] MEDS ORDERED: NA CHLORIDE 0.9% 1,000 ML IV SCH (10:00)
[2023-01-06] MEDS: PANTOPRAZOLE 40 MG INJ IVP SCH (10:00)
--- NOTE | 2023-01-06 11:18 | CON ---
Date of Consultation: 01/06/2023 Reason For Service: Diverticulitis with possible phlegmon. History Of Present Illness: This is the case of a 67-year-old patient, started with abdominal pain 2 days ago, it moved mainly into the left lower quadrant, crampy in nature. Today, it was not getting better, so this morning he decided to come to the ER. When the workup was done, he found to have di verticulitis with probably beginning of phlegmon, so he was admitted for IV antibiotics and a surgica l consult was obtained. The patient had a colonoscopy done a couple of years ago and he claimed he f ound diverticulum, but no other pathology. This was done by Dr. العلي. He was told not to follow u p until 10 years later. This Saturday when he was eating food with some tacos, but family also ate the same and they are not sick. This is his first episode of diverticulitis. Allergies: PENICILLIN. Past Surgical History: Surgeries include an appendectomy a few years ago. Past Medical History: Includes hypertension, hypothyroidism, on Synthroid, hiatal hernia, GERD, and diverticulum. Social History: He does not smoke. He does not drink alcohol. Medications: Include Protonix and Synthroid. Physical Examination: General: The patient is awake, alert. HEENT: Pupils are equal and reactive. Anicteric. Neck: Supple. Chest: Clear. Heart: S1, S2. Abdomen: Left lower quadrant tenderness with guarding. No rebound. Extremities: Good capillary refill. Rectal: Deferred. Laboratory Data: Blood work shows WBC count of 14, hemoglobin of 16. Potassium is 4, total bilirubi n of 1.2. CAT scan of the abdomen and pelvis interpreted by Dr. Sidhu as acute sigmoid diverticulit is, possible developing inferior wall intramural phlegmon. There is inflammatory wall thickening donnie ng the dome of the bladder near by, status post appendectomy. Assessment: This is a 67-year-old patient with diverticulitis, possibly the beginning of an abscess. The patient will be kept in the hospital, IV antibiotics, bowel rest, IV hydration. He understands the options of surgery, which include emergent laparotomy, possible resection, possible ostomy with chronic wound care with benefits, alternatives, and risks fully explained. If he improves and he kavon ged to go home without surgery, then also he was advised to follow up in our office, so we can discus s the next colonoscopy and also discuss with him the options and pros and cons of elective bowel rese ction. In the meantime, we will see how he does clinically. He understands. He was allowed to ask all the questions that were answered to his satisfaction. We will follow the patient with you and gi ve more recommendations as the case develops. DENISE Voice ID: [id number] Report ID: [id number]
[2023-01-06] MEDS ORDERED: CIPROFLOXACIN 400mg IV 400 MG/200 ML BAG IV ONE (11:21)
[2023-01-06] MEDS ORDERED: PANTOPRAZOLE 40 MG INJ ONE (11:21)
[2023-01-06] MEDS ORDERED: D5 0.9 NS 1,000 ML IV ONE (11:22)
[2023-01-06 11:26] LABS: Magnesium 2.2 mg/dL (1.6-2.4); Phosphorus 3.3 mg/dL (2.5-4.9); Thyroid Stimulating Hormone 1.92 uIU/mL (0.358-3.740)
[2023-01-06] MEDS ORDERED: LEVOTHYROXINE SODIUM 100 MCG VIAL IV SCH (12:15)
[2023-01-06] MEDS: Ringers Lactate 1,000 ML IV SCH (13:01)
[2023-01-06] MEDS ORDERED: Ringers Lactate 1,000 ML IV ONE (13:08)
[2023-01-06] MEDS: ACETAMINOPHEN 325 MG TABLET PO PRN (15:39)
[2023-01-06] MEDS: METRONIDAZOLE 500mg IVPB 500 MG/100 ML BAG IV SCH (16:03)
--- NOTE | 2023-01-06 19:22 | P.PN ---
Date of Service: 01/07/23 Subjective: Patient is doing well no new complaints. Physical Exam: Vitals: Reviewed Gen: Alert, Oriented, NAD CV: regular rate & rhythm, no edema Pulm: Respirations are clear bilaterally Abd: soft, distention, generalized tenderness MSK: no joint tenderness Integumentary: No rashes Neuro: normal speech, normal affect Problem List: 1. Acute sigmoid diverticulitis 2. Hypertension 3. Hypothyroidism 4. Hiatal Hernia 5. GERD PLAN: -aggressive IV hydration -IV antibiotics -outpatient colonoscopy -pain controlled -stool studies -monitor for possible perforation -surgery consultation appreciated -CT abdomen pelvis will be repeated
[2023-01-07] MEDS: METRONIDAZOLE 500mg IVPB 500 MG/100 ML BAG IV SCH ×3 (00:20→17:06)
[2023-01-07] MEDS: Ringers Lactate 1,000 ML IV SCH ×3 (00:20→18:55)
[2023-01-07 03:26] LABS: Absolute Lymphocytes (CBC) 1.4 K/uL (0.7-4.9); Hematocrit 36.8 % (39.6-49.0); Lymphocytes % 11.8 % (15.3-44.8); MCV 93.5 fL (80-100); MPV 7.7 fL (7.6-11.3); Platelets 224 thou/uL (152-406); RBC Red Blood Cell Count 3.94 M/uL (4.33-5.43)
[2023-01-07 03:41] LABS: Magnesium 1.9 mg/dL (1.6-2.4); Phosphorus 2.8 mg/dL (2.5-4.9); Potassium 3.7 mEq/L (3.5-5.1)
[2023-01-07] MEDS: PANTOPRAZOLE 40 MG INJ IVP SCH (08:24)
[2023-01-07] MEDS: CIPROFLOXACIN 400mg IV 400 MG/200 ML BAG IV SCH ×2 (08:24→22:05)
[2023-01-07] MEDS: ENOXAPARIN 40 MG/0.4 ML SQ SCH (08:24)
[2023-01-07 14:07] VITALS: BMI 30.8
--- NOTE | 2023-01-07 17:22 | PN ---
Date of Progress Note: 01/07/2023 Diagnosis: Diverticulitis with possible phlegmon. Subjective: The patient is doing well. No complaint. No nausea. The pain is less. No shortness o f breath. No chest pain. Objective: Vital Signs: Stable. Chest: Clear. Abdomen: Soft and depressible. Left lower quadrant tenderness, less than yesterday. Laboratory Data: Blood work shows WBC count of 11.7. Plan: We can have sips of clears today. Continue with bowel rest. We might repeat the CAT scan on Saturday. Continue antibiotics per ID. BRUNO/MODL Voice ID: [id number] Report ID: [id number]
--- NOTE | 2023-01-07 19:06 | EKG ---
Test Date: 2023-01-06 Test Time: 06:34:51 [employer] Director: ISHAAN MEASUREMENT RESULTS: Intervals: Rate: 81 VT: 176 QRSD: 82 QT: 356 QTc: 413 [place]: P: 51 VT: 176 QRS: 4 T: 37 INTERPRETIVE STATEMENTS: Normal sinus rhythm Normal ECG Compared to ECG 05/08/2014 07:24:48 Sinus arrhythmia no longer present Electronically Signed On 01-07-23 19:04:24 CDT by Anton Caldwell
[2023-01-08] MEDS: METRONIDAZOLE 500mg IVPB 500 MG/100 ML BAG IV SCH ×3 (01:42→16:50)
[2023-01-08] MEDS: ENOXAPARIN 40 MG/0.4 ML SQ SCH (07:43)
[2023-01-08] MEDS: Ringers Lactate 1,000 ML IV SCH ×2 (07:43→16:49)
[2023-01-08] MEDS: CIPROFLOXACIN 400mg IV 400 MG/200 ML BAG IV SCH ×2 (07:43→20:16)
[2023-01-08] MEDS: PANTOPRAZOLE 40 MG INJ IVP SCH (07:44)
--- NOTE | 2023-01-08 17:10 | PN ---
Date of Progress Note: 01/08/2023 Diagnosis: Diverticulitis. Subjective: The patient is doing great. Pain is almost completely gone. No nausea, no vomiting. H e has had a bowel movement and passing flatus. Review of Systems: Ten points otherwise unremarkable. Physical Examination: Chest: Clear. Abdomen: Soft and depressible. Extremities: Good capillary refill. Plan: He wants to try some diet, so we may advance the diet slowly obviously clinically following ho w he is doing. We might repeat the CAT scan tomorrow to see the progress and make sure the possible phlegmon never developed completely or that is not increased. If that is negative for the phlegmon, then we may have a point to consider him discharging home with some p.o. antibiotics and a diverticul ar diet and follow up in office in a week. We will see what the CAT scan shows tomorrow. BRUNO/SONIYA Voice ID: [id number] Report ID: [id number]
[2023-01-08] MEDS: LABETALOL 20 MG/4ML SYRINGE IV PRN (17:46)
--- NOTE | 2023-01-09 00:11 | P.PN ---
Date of Service: 01/08/23 Subjective: Patient is tolerating clear liquid diet. Continue with progression of care. CT pending Physical Exam: Vitals: Reviewed Gen: Alert, Oriented, NAD CV: regular rate & rhythm, no edema Pulm: Respirations are clear bilaterally Abd: soft, distention, generalized tenderness MSK: no joint tenderness Integumentary: No rashes Neuro: normal speech, normal affect Problem List: 1. Acute sigmoid diverticulitis 2. Hypertension 3. Hypothyroidism 4. Hiatal Hernia 5. GERD PLAN: -IV hydration -IV antibiotics -outpatient colonoscopy -pain controlled -stool studies -monitor for possible perforation -surgery consultation appreciated -CT abdomen pelvis will be repeated
[2023-01-09] MEDS: ACETAMINOPHEN 325 MG TABLET PO PRN (00:40)
[2023-01-09] MEDS: METRONIDAZOLE 500mg IVPB 500 MG/100 ML BAG IV SCH ×3 (00:41→18:50)
[2023-01-09] MEDS: Ringers Lactate 1,000 ML IV SCH ×2 (01:00→12:46)
[2023-01-09 06:44] LABS: Absolute Lymphocytes (CBC) 1.4 K/uL (0.7-4.9); Hematocrit 39.1 % (39.6-49.0); Lymphocytes % 20.4 % (15.3-44.8); MCV 92.6 fL (80-100); MPV 7.3 fL (7.6-11.3); Platelets 251 thou/uL (152-406); RBC Red Blood Cell Count 4.22 M/uL (4.33-5.43)
[2023-01-09 07:02] LABS: Bilirubin Total 0.6 mg/dL (0.2-1.0); Magnesium 2.1 mg/dL (1.6-2.4); Phosphorus 3.5 mg/dL (2.5-4.9); Potassium 3.7 mEq/L (3.5-5.1); Protein, Total 6.2 g/dL (6.4-8.2)
[2023-01-09] MEDS: LABETALOL 20 MG/4ML SYRINGE IV PRN (08:37)
[2023-01-09] MEDS: ENOXAPARIN 40 MG/0.4 ML SQ SCH (08:42)
[2023-01-09] MEDS: PANTOPRAZOLE 40 MG INJ IVP SCH (08:53)
[2023-01-09] MEDS: CIPROFLOXACIN 400mg IV 400 MG/200 ML BAG IV SCH (08:53)
--- NOTE | 2023-01-09 10:13 | RAD REPORT ---
EXAM DESCRIPTION: CTAbdomen Pelvis W Contrast - 01/09/2023 9:25 am CLINICAL HISTORY: Abdominal pain. Abd pain; diverticulitis with perf COMPARISON: Chest Abdomen Pelvis W Cont dated 01/06/2023 TECHNIQUE: Biphasic CT imaging of the abdomen and pelvis was performed with 100 ml non-ionic IV cont rast. All CT scans are performed using dose optimization technique as appropriate and may include automated exposure control or mA/KV adjustment according to patient size. FINDINGS: Mild linear atelectasis is seen in the right lung base. The liver, spleen, pancreas, adrenal glands and kidneys are within normal limits. The previously noted acute diverticulitis of the sigmoid colon in the lower abdomen has improved mild ly. No peridiverticular abscess seen. No bowel obstruction is present. No pneumoperitoneum. Small fa t containing umbilical hernia. No evidence of significant lymphadenopathy. No suspicious bony findings. IMPRESSION: Mild improvement in the acute diverticulitis of the sigmoid colon since prior study. No evidence of abscess or other complication seen.
[2023-01-09] MEDS ORDERED: HYDRALAZINE HCL 20 MG/ML VIAL IV PRN (10:41)
[2023-01-09] MEDS ORDERED: HYDRALAZINE HCL 20 MG/ML VIAL IV ONE (10:41)
[2023-01-09] MEDS ORDERED: HOME MED 1 EA UNK (Potassium Chloride [Potassium Chloride] 20 MEQ Tablet.Er) PO SCH (10:45)
[2023-01-09 14:43] VITALS: O2SAT 100
[2023-01-09] MEDS ORDERED: AMLODIPINE 2.5 MG TAB PO SCH (17:00)
[2023-01-09] MEDS ORDERED: HOME MED 1 EA UNK (Simvastatin [Simvastatin] 10 MG Tablet) PO SCH (17:00)
[2023-01-09] MEDS ORDERED: ATORVASTATIN 10 MG TAB PO SCH (17:00)
--- NOTE | 2023-01-09 19:37 | PN ---
Date of Progress Note: 01/09/2023 Diagnosis: Diverticulitis. Subjective: Patient doing better. No nausea. No vomiting. No fever. No shortness of breath. No chest pain. Passing flatus, and had a bowel movement. He is tolerating diet. Objective: Chest: Clear. Abdomen: Soft and depressible. No guarding or rebound. Nontender. Imaging: CAT scan reviewed once again shows no abscess present. Improvement of his diverticulitis. Laboratory Data: Blood work shows a WBC count of normal 6.8. Plan: We advance his diet. If he can tolerate diet, then he can go home with a diverticular diet an d also antibiotics by mouth for a week. 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 BRUNO/SONIYA Voice ID: [id number] Report ID: [id number]
[2023-01-09 21:39] VITALS: BP 158/98; TEMP 97.9
[2023-01-10] MEDS ORDERED: LEVOTHYROXINE SOD 0.05 MG TABLET PO SCH (06:30)
[2023-01-10] MEDS ORDERED: ASPIRIN EC 81 MG TAB PO SCH (09:00)
[2023-01-10] MEDS ORDERED: PANTOPRAZOLE 40MG TABLET PO SCH (09:00)
[2023-01-10] MEDS ORDERED: hydroCHLOROthiazide 12.5 MG CAP PO SCH (09:00)
[2023-01-10] MEDS ORDERED: LACTOBACILLUS/ACIDOPHILUS TAB PO SCH (09:00)
[2023-01-10] MEDS ORDERED: ESOMEPRAZOLE MAGNESIUM 20 MG PO SCH (09:00)
[2023-01-10] MEDS ORDERED: LOSARTAN POTASSIUM 50 MG TABLET PO SCH (09:00)
[2023-01-14] MEDS ORDERED: POTASSIUM CL SA 10 MEQ TAB PO SCH (09:00)
== END 2023-01-09 20:30 | disposition home or self-care (01) | DRG 392 ==
LOC: ER 05:37 → ERHOLD 09:02 → 2ND 11:31
PROVIDERS: ADMIT Internal Medicine; ATTEND Hospitalist
DX: K57.32 Diverticulitis of large intestine without perforation or abscess without bleeding (principal); I10 Essential (primary) hypertension; E03.9 Hypothyroidism, unspecified; K44.9 Diaphragmatic hernia without obstruction or gangrene; K21.9 Gastro-esophageal reflux disease without esophagitis; R55 Syncope and collapse; R30.9 Painful micturition, unspecified; R06.02 Shortness of breath; R00.2 Palpitations; Z79.899 Other long term (current) drug therapy; Z88.0 Allergy status to penicillin
CPT/HCPCS: 36415; 70450; 71260; 74177; 80048; 80053; 81001; 83605; 83690; 83735; 84100; 84145; 84443; 84484; 85025; 87040; 93005; 94010; 96374; 96375; 99285; C9113; J0696; J0744; J1650; J2270; J2405; J7030; J7042; J7120; J7799; Q9967